=== PATIENT | male | born 1980 | race Caucasian/White ===

== ENCOUNTER 2018-12-01 17:43 | Emergency (ER) | payer OTHER ==
[~2018-12-01] VITALS: Ht 175.3 cm; Wt 93.0 kg
--- NOTE | 2018-12-01 17:48 | ED.ADGEN ---
Adult General Chief Complaint Chief Complaint " .. I got this scratch on my Lt lower eye lid... 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 I was working out and got this scratch on my lower eye lid with body bag.." HPI HPI Patient is a 38 year old male who presents with above hx and complaints of Lt. eye lower lid abrasion. No significant vision changes. Does have a small scratch on left lower eyelid. Patient is up-to-date with vaccinations. No recent travel. Normally very healthy. Up-to-date with tetanus. History immunosuppression. Patient daily aspirin nursing. No obvious injury to eyeball itself however the lid has a small scratch. Patient reports minimal discomfort. Review of Systems Review of Systems Constitutional: Denies fever or chills [] Eyes: Denies change in visual acuity, redness, or eye pain, complaints abrasion to left lower eyelid HENT: Denies nasal congestion or sore throat [] Respiratory: Denies cough or shortness of breath [] Cardiovascular: No additional information not addressed in HPI [] GI: Denies abdominal pain, nausea, vomiting, bloody stools or diarrhea [] : Denies dysuria or hematuria [] Musculoskeletal: Denies back pain or joint pain [] Integument: Denies rash or skin lesions [] Neurologic: Denies headache, focal weakness or sensory changes [] Endocrine: Denies polyuria or polydipsia [] All other systems were reviewed and found to be within normal limits, except as documented in this note. Family History Family History Noncontributory Current Medications Current Medications Current Medications Medications (Trade) Dose Ordered Sig/Ed Start Time Stop Time Status Last Admin Dose Admin Erythromycin (Romycin) 0.25 inch 1X ONCE 12/01/18 18:30 12/01/18 18:31 DC Allergies Allergies Allergies Coded Allergies Type Severity Reaction Last Updated Verified No Known Drug Allergies 12/01/18 No Physical Exam Physical Exam Constitutional: Well developed, well nourished, no acute distress, non-toxic appearance. [] HENT: Normocephalic, atraumatic, bilateral external ears normal, oropharynx moist, no oral exudates, nose normal. [] Eyes: PERRLA, EOMI, conjunctiva normal, no discharge. [] The findings and left lower eyelid as per history of present illness Neck: Normal range of motion, no tenderness, supple, no stridor. [] Cardiovascular:Heart rate regular rhythm, no murmur [] Lungs & Thorax: Bilateral breath sounds clear to auscultation [] Abdomen: Bowel sounds normal, soft, no tenderness, no masses, no pulsatile masses. [] Skin: Warm, dry, no erythema, no rash. [] Back: No tenderness, no CVA tenderness. [] Extremities: No tenderness, no cyanosis, no clubbing, ROM intact, no edema. [] Neurologic: Alert and oriented X 3, normal motor function, normal sensory function, no focal deficits noted. [] Psychologic: Affect normal, judgement normal, mood normal. [] Current Patient Data Vital Signs Vital Signs Date Time Temp Pulse Resp B/P (MAP) Pulse Ox O2 Delivery O2 Flow Rate FiO2 12/01/18 17:53 98.3 51 18 100 Room Air EKG EKG [] Radiology/Procedures Radiology/Procedures [] Course & Med Decision Making Course & Med Decision Making Pertinent Labs and Imaging studies reviewed. (See chart for details). 2. Clean. Apply a very small amount of erythromycin ointment 4 times a day. Follow-up primary care. Follow-up ophthalmology. Return if any increased redness decrease in vision or concerns. [] Final Impression Final Impression 1. Left lower eye lid abrasion[] Dragon Disclaimer Dragon Disclaimer This electronic medical record was generated, in whole or in part, using a voice recognition dictation system. KONG HERNANDEZ MD Dec 01, 2018 17:48
[2018-12-01 17:53] VITALS: BP 141/82
[2018-12-01] MEDS ORDERED: ERYTHROMYCIN 0.5% OPHTH OINTMENT 1GM TUBE. OS ONE (18:30)
== END 2018-12-01 18:09 | disposition home or self-care (01) ==
LOC: ER 17:43
DX: S00.212A Abrasion of left eyelid and periocular area, initial encounter (principal); W22.8XXA Striking against or struck by other objects, initial encounter; Y93.89 Activity, other specified; Y92.89 Other specified places as the place of occurrence of the external cause; Y99.0 Civilian activity done for income or pay
CPT/HCPCS: 99281; 99282

== ENCOUNTER 2019-01-14 16:16 | Emergency (ER) | payer OTHER ==
[~2019-01-14] VITALS: Ht 175.3 cm; Wt 90.7 kg
[2019-01-14 16:30] VITALS: BP 137/84
[2019-01-14] MEDS ORDERED: ORPH-16 PO (17:07)
[2019-01-14] MEDS ORDERED: MELO7.5T29 PO (17:07)
--- NOTE | 2019-01-14 17:10 | PHYS DOC ---
Past History Past Medical History: Anxiety, GERD, Hypertension Past Surgical History: No Surgical History Additional Smoking Information: 1/2 PACK Alcohol Use: None Drug Use: None Adult General Chief Complaint Chief Complaint: BACK PAIN OR INJURY HPI HPI Patient is a 38-year-old male presents complaining of right sided low back pain after swimming and pushing his around while swimming, with her in a innertube. Increased pain with movement. This started yesterday. No significant improvement with ibuprofen. No loss of bowel or bladder control. No radiation of the discomfort. Pain is moderate to severe in intensity. No fever. No history of IV drug abuse.[] Review of Systems Review of Systems Constitutional: Denies fever or chills [] Eyes: Denies change in visual acuity, redness, or eye pain [] HENT: Denies nasal congestion or sore throat [] Respiratory: Denies cough or shortness of breath [] Cardiovascular: No chest pain or palpitations[] GI: Denies abdominal pain, nausea, vomiting, bloody stools or diarrhea [] : Denies dysuria or hematuria [] Musculoskeletal: The history of present illness[] Integument: Denies rash or skin lesions [] Neurologic: Denies headache, focal weakness or sensory changes [] Endocrine: Denies polyuria or polydipsia [] All other systems were reviewed and found to be within normal limits, except as documented in this note. Allergies Allergies Allergies Coded Allergies Type Severity Reaction Last Updated Verified No Known Drug Allergies 12/01/18 No Physical Exam Physical Exam Constitutional: Well developed, well nourished, no acute distress, non-toxic appearance. [] HENT: Normocephalic, atraumatic, bilateral external ears normal, oropharynx moist, no oral exudates, nose normal. [] Eyes: PERRLA, EOMI, conjunctiva normal, no discharge. [] Neck: Normal range of motion, no tenderness, supple, no stridor. [] Cardiovascular:Heart rate regular rhythm, no murmur [] Lungs & Thorax: Bilateral breath sounds clear to auscultation [] Abdomen: Bowel sounds normal, soft, no tenderness, no masses, no pulsatile masses. [] Skin: Warm, dry, no erythema, no rash. [] Back: Tenderness in the right lumbar paraspinal musculature as well as over the sciatic notch. Full active range of motion. Normal gait. DTRs are 2 over 4 and symmetric in the patella and the Achilles. He is distally neurovascularly intact., no CVA tenderness. [] Extremities: No tenderness, no cyanosis, no clubbing, ROM intact, no edema. [] Neurologic: Alert and oriented X 3, normal motor function, normal sensory function, no focal deficits noted. [] Psychologic: Affect normal, judgement normal, mood normal. [] Current Patient Data Vital Signs Vital Signs Date Time Temp Pulse Resp B/P (MAP) Pulse Ox O2 Delivery O2 Flow Rate FiO2 01/14/19 16:30 97.9 95 20 97 Room Air EKG EKG [] Radiology/Procedures Radiology/Procedures [] Course & Med Decision Making Course & Med Decision Making Pertinent Labs and Imaging studies reviewed. (See chart for details) ED course: Patient arrived, was placed in bed, and tolerated exam well. Discussed findings and plan with patient who voiced understanding. All questions were answered. He was discharged in improved condition. Medical decision making: Patient with low back pain without any red flag features. No imaging is indicated at this time. No evidence of cauda equina syndrome, fracture, or subluxation. We will treat with oral outpatient medicines.[] Dragon Disclaimer Dragon Disclaimer This electronic medical record was generated, in whole or in part, using a voice recognition dictation system. Departure Departure: Impression: Primary Impression: Low back pain Disposition: 01 HOME, SELF-CARE Condition: IMPROVED Referrals: PCP,UNKNOWN (PCP) Patient Instructions: Low Back Strain with [facility], Sciatica with [facility] Additional Instructions: Follow-up with your regular doctor in 2 days. Take medication as prescribed. Return to the ER if worsening pain, weakness, loss of bowel or bladder control, or any other concerns. Scripts Orphenadrine Citrate (ORPHENADRINE CITRATE) 100 Mg Tablet.er 100 MG PO BID for BACK PAIN, #20 TAB.SR Prov: SANCHEZ LLOYD DO 01/14/19 Meloxicam (MELOXICAM) 7.5 Mg Tablet 7.5 MG PO DAILY for PAIN, #20 TAB Prov: SANCHEZ LLOYD DO 01/14/19 Problem Qualifiers Primary Impression: Low back pain Chronicity: acute Back pain laterality: right Sciatica presence: with sciatica Sciatica laterality: sciatica of right side Qualified Codes: M54.41 - Lumbago with sciatica, right side SANCHEZ LLOYD DO Jan 14, 2019 17:10
== END 2019-01-14 17:26 | disposition home or self-care (01) ==
LOC: ER 16:16
DX: M54.41 Lumbago with sciatica, right side (principal); K21.9 Gastro-esophageal reflux disease without esophagitis; I10 Essential (primary) hypertension; F41.9 Anxiety disorder, unspecified; F17.200 Nicotine dependence, unspecified, uncomplicated
CPT/HCPCS: 99283

== ENCOUNTER 2019-01-31 16:08 | Emergency (ER) | payer OTHER ==
[~2019-01-31] VITALS: Ht 175.3 cm; Wt 90.7 kg
[2019-01-31 16:08] VITALS: BP 133/85
[~2019-01-31 16:08] MED LIST: MELO7.5T29 PO; ORPH-16 PO
[2019-01-31] MEDS ORDERED: OXAP600T2 PO (16:41)
[2019-01-31] MEDS ORDERED: ORPH-16 PO (16:41)
[2019-01-31] MEDS ORDERED: percogesic PO (16:41)
--- NOTE | 2019-01-31 16:41 | PHYS DOC ---
Past History Past Medical History: Anxiety, GERD, Hypertension Past Surgical History: No Surgical History Alcohol Use: None Drug Use: None Adult General Chief Complaint Chief Complaint: LOWER EXT PAIN HPI HPI Patient is a 38-year-old male presents complaining of right sided buttock pain with radiation down the back side of his leg. No loss of bowel or bladder control. No trauma. He was seen initially for this approximately 2 weeks ago. Was doing better up until for 5 days ago when symptoms became worse again. No relief with foam roller or doing reclined pigeon pose from yoga. No fever. No trauma. No recent changes in weight. No personal history of cancer.[] Review of Systems Review of Systems Constitutional: Denies fever or chills [] Eyes: Denies change in visual acuity, redness, or eye pain [] HENT: Denies nasal congestion or sore throat [] Respiratory: Denies cough or shortness of breath [] Cardiovascular: No chest pain or palpitations[] GI: Denies abdominal pain, nausea, vomiting, bloody stools or diarrhea [] : Denies dysuria or hematuria [] Musculoskeletal: See history of present illness[] Integument: Denies rash or skin lesions [] Neurologic: Denies headache, focal weakness or sensory changes [] Endocrine: Denies polyuria or polydipsia [] All other systems were reviewed and found to be within normal limits, except as documented in this note. Allergies Allergies Allergies Coded Allergies Type Severity Reaction Last Updated Verified No Known Drug Allergies 12/01/18 No Physical Exam Physical Exam Constitutional: Well developed, well nourished, no acute distress, non-toxic appearance. [] HENT: Normocephalic, atraumatic, bilateral external ears normal, oropharynx moist, no oral exudates, nose normal. [] Eyes: PERRLA, EOMI, conjunctiva normal, no discharge. [] Neck: Normal range of motion, no tenderness, supple, no stridor. [] Cardiovascular:Heart rate regular rhythm, no murmur [] Lungs & Thorax: Bilateral breath sounds clear to auscultation [] Abdomen: Bowel sounds normal, soft, no tenderness, no masses, no pulsatile masses. [] Skin: Warm, dry, no erythema, no rash. [] Back: Tenderness to palpation over the right sciatic notch which re-creates his pain. Full active range of motion of the lumbar spine. Normal gait. DTRs are 2 over 4 and symmetric., no CVA tenderness. [] Extremities: No tenderness, no cyanosis, no clubbing, ROM intact, no edema. [] Neurologic: Alert and oriented X 3, normal motor function, normal sensory function, no focal deficits noted. [] Psychologic: Affect normal, judgement normal, mood normal. [] Current Patient Data Vital Signs Vital Signs Date Time Temp Pulse Resp B/P (MAP) Pulse Ox O2 Delivery O2 Flow Rate FiO2 01/31/19 16:08 97.9 80 18 98 Room Air EKG EKG [] Radiology/Procedures Radiology/Procedures [] Course & Med Decision Making Course & Med Decision Making Pertinent Labs and Imaging studies reviewed. (See chart for details) ED course: Patient arrived, was placed in bed, and tolerated exam well. Discussed findings and plan with the patient who voiced understanding. All questions were answered. He was discharged in improved condition. Juliette decision making: There is no evidence of a fracture, dislocation, no red flag features indicating a need for imaging in the emergency department. Patient may need an MRI given recurrence of symptoms but this can be provided by his primary care physician. [facility] is eligible [facility] care [facility], he has not made arrangements for follow-up care because of training he is undergoing.[] Dragon Disclaimer Dragon Disclaimer This electronic medical record was generated, in whole or in part, using a voice recognition dictation system. Departure Departure: Impression: Primary Impression: Sciatica Disposition: 01 HOME, SELF-CARE Condition: IMPROVED Referrals: PCP,NO (PCP) Additional Instructions: Follow-up with your regular doctor/[facility] in 2 [facility]. The local [facility] can be contacted at: [facility] [address] Continue the stretching maneuvers you have been doing. Return to the ER if loss of bowel or bladder control, fever of more than 101, or any other concerns. Scripts [percogesic] No Conflict Check 1-2 TAB PO Q6HRS for pain, #20 TAB Prov: SANCHEZ LLOYD DO 01/31/19 Orphenadrine Citrate (ORPHENADRINE CITRATE) 100 Mg Tablet.er 100 MG PO BID for BACK PAIN, #20 TAB.SR Prov: SANCHEZ LLOYD DO 01/31/19 Oxaprozin (OXAPROZIN) 600 Mg Tablet 600 MG PO BID for pain, #20 TAB Prov: SANCHEZ LLOYD DO 01/31/19 Problem Qualifiers Primary Impression: Sciatica Laterality: right Qualified Codes: M54.31 - Sciatica, right side SANCHEZ LLOYD DO Jan 31, 2019 16:41
== END 2019-01-31 16:51 | disposition home or self-care (01) ==
LOC: ER 16:08
DX: M54.41 Lumbago with sciatica, right side (principal); K21.9 Gastro-esophageal reflux disease without esophagitis; I10 Essential (primary) hypertension
CPT/HCPCS: 99283